=== PATIENT | female | born 1950 | race Caucasian/White ===

== ENCOUNTER → 2017-10-28 | Outpatient (CLI) | payer MEDICARE, OTHER ==
[~2017-10-28] MED LIST: ATEN25 PO; BIMA.03OPS OU; CEFD300; ENOX40I SC; Estrace Vagin42.5 GM VAG; LATA.005SO BOTHEYES; LEVSOD100 PO; LEVSOD88 PO; LORA10ER PO; LORA1SY PO; ONDA4ODT MM; PRED20 PO; PROM25 PO; RABE20 PO; RANI150 PO; ROXICODONE5 MG PO; TIMO.5OPSO BOTHEYES; TIMOPTIC 0.5%1 EACH BOTHEYES; [UNRECOGNIZED DRUG - REMARK]
[2017-10-30 11:40] LABS: HPV Genotype 16 Not Detected (NOTDET); HPV Genotype 18 Not Detected (NOTDET)
[2017-11-08 10:13] LABS: HPV High Risk Other Not Detected (NOTDET)
== END | disposition home or self-care (01) ==
LOC: OLS 16:04
PROVIDERS: Nurse Practitioner Women's Health
DX: Z12.4 Encounter for screening for malignant neoplasm of cervix (principal); Z91.89 Other specified personal risk factors, not elsewhere classified
CPT/HCPCS: 87624; G0123

== ENCOUNTER → 2017-11-15 | Outpatient (CLI) | payer MEDICARE, OTHER ==
[2017-11-15 10:33] LABS: Source, Urine Clean Catch
[2017-11-15 13:47] LABS: Bacteria Rare /hpf; Red Blood Cells, Urine 0-2 /hpf (0-2); Squamous Epithelial Cells Few /hpf (Few)
== END ==
LOC: LAB SHORT 10:30
PROVIDERS: General Practice
DX: N21.0 Calculus in bladder (principal)
CPT/HCPCS: 81015; 87077; 87086; 87186

== ENCOUNTER 2017-11-21 08:17 | Emergency (ER) | payer MEDICARE, OTHER ==
[~2017-11-21] VITALS: Ht 162.6 cm; Wt 55.3 kg
[~2017-11-21 08:17] MED LIST changes: -CEFD300; -ENOX40I SC; -Estrace Vagin42.5 GM VAG; -LORA1SY PO; -ONDA4ODT MM; -PROM25 PO; -ROXICODONE5 MG PO; -TIMOPTIC 0.5%1 EACH BOTHEYES
[2017-11-21] MEDS ORDERED: CEFD300 (08:54)
[2017-11-21 09:53] LABS: Source, Urine Clean Catch
[2017-11-21 09:55] LABS: BASOPHILS ABSOLUTE AUTO 0.03 K/mm3 (0.00-0.23); BASOPHILS PERCENT AUTO 1 % (0-2); EOSINOPHILS ABSOLUTE AUTO 0.48 K/mm3 (0.00-0.68); EOSINOPHILS PERCENT AUTO 10 % (0-6); Hematocrit 41.9 % (33.0-51.0); IMMATURE GRAN ABSOLUTE AUTO 0.03 K/mm3 (0.00-0.10); IMMATURE GRAN PERCENT AUTO 1 % (0-1); LYMPHOCYTES ABSOLUTE AUTO 0.93 K/mm3 (0.84-5.20); LYMPHOCYTES PERCENT AUTO 19 % (21-46); MONOCYTES ABSOLUTE AUTO 0.71 K/mm3 (0.16-1.47); MONOCYTES PERCENT AUTO 14 % (4-13); Mean Corpuscular HGB 31.7 pg (26.0-34.0); Mean Corpuscular HGB Conc 33.4 g/dL (31.5-36.5); Mean Corpuscular Volume 95 fL (80-100); Mean Platelet Volume 11.3 fL (9.1-12.4); NEUTROPHILS ABSOLUTE AUTO 2.85 K/mm3 (1.96-9.15); NEUTROPHILS PERCENT AUTO 57 % (41-73); Platelet Count 164 K/mm3 (150-400); RDW Standard Deviation 42.1 fL (35.1-46.3); Red Blood Cell Count 4.41 M/mm3 (3.80-5.20); White Blood Cell Count 5.03 K/mm3 (4.00-11.30)
[2017-11-21 10:04] LABS: Bilirubin, Urine Neg (Neg); Blood, Urine Neg (Neg); Glucose Qualitative, Urine Neg (Neg); Ketones, Urine Neg (Neg); Leukocyte Esterase, Urine Neg (Neg); Nitrite, Urine Neg (Neg); Protein, Urine Neg (Neg); Specific Gravity, Urine 1.015 (1.003-1.022); Urobilinogen, Urine NORM (Normal)
[2017-11-21 10:15] LABS: Appearance, Urine Clear (Clear); Color, Urine Pale Yellow (P-Yellow)
[2017-11-21 10:29] LABS: Alanine Aminotransfer (ALT/SGP 24 U/L (12-78); Albumin, Blood 3.8 g/dL (3.4-5.0); Albumin/Globulin Ratio 1.1 (0.8-1.8); Alk Phos 67 U/L (50-136); Anion Gap 6 mmol/L (6-16); Aspartate Aminotrans (AST/SGOT 17 U/L (12-37); Bilirubin, Total 0.5 mg/dL (0.1-1.0); Blood Urea Nitrogen 10 mg/dL (8-24); Bun/Creatinine Ratio 11.2 (12.0-20.0); CO2, Blood 30 mmol/L (21-32); Calcium, Blood 9.1 mg/dL (8.5-10.1); Chloride, Blood 105 mmol/L (98-108); Creatinine, Blood 0.89 mg/dL (0.40-1.00); Globulin, Blood 3.4 g/dL (2.2-4.0); Glomerular Filtration Rate >60 (60-); Glucose, Blood 107 mg/dL (70-99); Potassium, Blood 4.2 mmol/L (3.5-5.5); Sodium, Blood 141 mmol/L (136-145); Total Protein, Blood 7.2 g/dL (6.4-8.2)
[2018-05-05] MEDS ORDERED: Estrace Vagin42.5 GM VAG (11:26)
[2018-05-05] MEDS ORDERED: TIMOPTIC 0.5%1 EACH BOTHEYES (11:28)
[2018-05-05] MEDS ORDERED: LORA1SY PO (11:30)
[2018-05-13] MEDS ORDERED: ROXICODONE5 MG PO (09:56)
[2018-05-13] MEDS ORDERED: ENOX40I SC (09:56)
[2018-05-13] MEDS ORDERED: PROM25 PO (09:57)
[2018-05-13] MEDS ORDERED: ONDA4ODT MM (10:13)
== END 2017-11-21 10:59 | disposition home or self-care (01) ==
LOC: ER 08:17
PROVIDERS: Emergency Medicine
DX: R55 Syncope and collapse (principal); T37.8X5A Adverse effect of other specified systemic anti-infectives and antiparasitics, initial encounter; T36.1X5A Adverse effect of cephalosporins and other beta-lactam antibiotics, initial encounter; N21.0 Calculus in bladder; Z88.2 Allergy status to sulfonamides; Z88.8 Allergy status to other drugs, medicaments and biological substances; Z79.899 Other long term (current) drug therapy; Z79.2 Long term (current) use of antibiotics; E03.9 Hypothyroidism, unspecified
CPT/HCPCS: 36415; 80053; 81003; 85025; 93005; 93010; 99283

== ENCOUNTER → 2018-08-17 | Outpatient (CLI) | payer MEDICARE, OTHER ==
[~2018-08-17] MED LIST changes: +CEFD300; +ENOX40I SC; +Estrace Vagin42.5 GM VAG; +LORA1SY PO; +ONDA4ODT MM; +PROM25 PO; +ROXICODONE5 MG PO; +TIMOPTIC 0.5%1 EACH BOTHEYES
== END | disposition home or self-care (01) ==
LOC: LAB SHORT 07:55 → PLD 07:55
DX: D48.5 Neoplasm of uncertain behavior of skin (principal)
CPT/HCPCS: 88305

== ENCOUNTER → 2018-11-23 | Outpatient (CLI) | payer MEDICARE, OTHER ==
[2018-11-25 16:07] LABS: HPV 16 Negative (Negative); HPV 18 Negative (Negative); HPV OTHER HR TYPES Negative (Negative)
== END | disposition home or self-care (01) ==
LOC: LAB SHORT 18:48 → LAB 18:48
PROVIDERS: Nurse Practitioner Women's Health
DX: Z12.4 Encounter for screening for malignant neoplasm of cervix (principal); Z91.89 Other specified personal risk factors, not elsewhere classified
CPT/HCPCS: 87624; G0123

== ENCOUNTER → 2018-11-28 | Outpatient (CLI) | payer MEDICARE, OTHER | LOC: LAB EV 16:10 → LAB SHORT 16:10 | DX: N39.0 Urinary tract infection, site not specified (principal) | CPT/HCPCS: 87086 ==

== ENCOUNTER → 2018-12-08 | Outpatient (CLI) | payer MEDICARE, OTHER ==
[2018-12-08 10:31] LABS: Appearance, Urine Clear (Clear); Bilirubin, Urine Neg (Neg); Blood, Urine Neg (Neg); Color, Urine Yellow (P-Yellow); Glucose Qualitative, Urine Neg (Normal); Ketones, Urine Neg (Neg); Leukocyte Esterase, Urine Neg (Neg); Nitrite, Urine Neg (Neg); Protein, Urine Neg (Neg); Red Blood Cells, Urine Not Seen /hpf (0-2); Specific Gravity, Urine 1.015 (1.003-1.022); Urobilinogen, Urine NORM (Normal); White Blood Cells, Urine 0-2 /hpf (0-5)
[2018-12-08 10:32] LABS: Bacteria Not Seen /hpf; Calcium Oxalate Crystals Mod /hpf; Squamous Epithelial Cells Mod /hpf (Few)
== END | disposition home or self-care (01) ==
LOC: LAB EV 06:30
PROVIDERS: Physician Assistant
DX: N39.0 Urinary tract infection, site not specified (principal)
CPT/HCPCS: 81001; 81003

== ENCOUNTER → 2019-01-17 | Outpatient (CLI) | payer MEDICARE, OTHER | END | disposition home or self-care (01) | LOC: LAB SHORT 08:36 → LAB EV 08:36 | DX: N39.0 Urinary tract infection, site not specified (principal) | CPT/HCPCS: 87077; 87086; 87186 ==

== ENCOUNTER → 2019-01-30 | Outpatient (CLI) | payer MEDICARE, OTHER | END | disposition home or self-care (01) | LOC: LAB EV 15:41 → LAB SHORT 15:41 | DX: N39.0 Urinary tract infection, site not specified (principal) | CPT/HCPCS: 87077; 87086; 87186 ==